=== PATIENT | female | born 1975 | race Caucasian/White ===

== ENCOUNTER 2018-10-19 11:32 | Emergency (ER) | payer SELFPAY ==
[2018-10-19] MEDS ORDERED: Ondansetron PF 4 MG/2 ML Vial ONE (12:22)
[2018-10-19] MEDS ORDERED: Acetaminophen 500 MG TAB ONE (13:09)
[2018-10-19] MEDS ORDERED: diphenhydrAMINE 50 MG/ML VIAL ONE (13:09)
[2018-10-19] MEDS ORDERED: Metoclopramide HCl 10 MG/2 ML VIAL ONE (13:09)
== END 2018-10-19 15:32 | disposition home or self-care (01) ==
LOC: ERS 11:32
DX: R51 Headache (principal); F31.9 Bipolar disorder, unspecified; F41.9 Anxiety disorder, unspecified
CPT/HCPCS: 96361; 96374; 96375; J1200; J2405; J2765

== ENCOUNTER 2019-08-04 04:28 | Emergency (ER) | payer SELFPAY ==
[2019-08-04] MEDS ORDERED: diphenhydrAMINE 50 MG/ML VIAL ONE (05:01)
[2019-08-04] MEDS ORDERED: Metoclopramide HCl 10 MG/2 ML VIAL ONE (05:01)
[2019-08-04] MEDS ORDERED: Ketorolac Tromethamine 30 MG/ML VIAL ONE (05:01)
== END 2019-08-04 06:42 | disposition home or self-care (01) ==
LOC: ERS 04:28
DX: R51 Headache (principal); F41.9 Anxiety disorder, unspecified; F31.9 Bipolar disorder, unspecified
CPT/HCPCS: 96365; 96375; J1200; J1885; J2765

== ENCOUNTER 2023-11-20 20:54 | Emergency (ER) | payer BC, SELFPAY ==
[2023-11-20 23:27] LABS: Influenza A by NAA Not Detected (NotDetected); Influenza B by NAA Not Detected (NotDetected); SARS-CoV-2 NAA Rapid Test DETECTED (NotDetected)
[2023-11-20] MEDS ORDERED: Acetaminophen 500 MG TAB ONE (23:28)
[2023-11-20] MEDS ORDERED: Ibuprofen 200 MG TAB ONE (23:28)
== END 2023-11-21 00:15 | disposition home or self-care (01) ==
LOC: ERS 20:54
DX: U07.1 COVID-19 (principal)
CPT/HCPCS: 71046; 87081; 87430